=== PATIENT | female | born 1975 | race Caucasian/White ===

== ENCOUNTER 2016-05-11 10:08 | Emergency (ER) | payer OTHER ==
--- NOTE | ~2016-05-11 | ER ---
PATIENT'S NAME: YAZMIN BACON [facility] AGE: 41 Y [address] ROOM: [place] [id number] LOCATION: ED ADMIT DATE: 05/11/2016 ER/Outpatient Report DISCHARGE DATE: 05/11/2016 FAMILY PHYSICIAN: Flaco Talbot MD ATTENDING PHYSICIAN: Lili Velez TIME OF ARRIVAL: 10:08. TIME SEEN: 10:14. IDENTIFICATION: A 41-year-old female. CHIEF COMPLAINT: Wanting pain medications. HISTORY OF PRESENT ILLNESS: The patient is a 41-year-old female, who has chills, body aches, diarrhea, and clammy. She was diagnosed with breast cancer, and is on chronic opiates. She states she has stage IV breast cancer. She has been through chemotherapy, and she is on letrozole. She ran out of her pain prescription early, and cannot refill for two days. She follows up with Dr. Maldonado every six months, and in May is her next appointment. She said, "I just feel horrible." She has backache, "my whole body aches," headache, and generalized weakness. No fever. No hallucinations. No tremors. She has never had seizures or withdrawal symptoms. She has not been around anyone else who is ill. ALLERGIES: PENICILLIN AND SULFA. CURRENT MEDICATIONS: 1. OxyContin CR 60 mg b.i.d. 2. Oxycodone 20 mg four times daily. Both of those are prescribed per Dr. Maldonado, the Pain specialist. Letrozole daily. MEDICAL PROBLEMS: Stage IV breast cancer followed at the [facility] in [place], metastasized to bone. PATIENT'S NAME: YAZMIN BACON [facility] AGE: 41 Y [address] ROOM: [place] [address] LOCATION: [facility] ADMIT DATE: 05/11/2016 ER/Outpatient Report DISCHARGE DATE: 05/11/2016 FAMILY PHYSICIAN: Flaco Talbot MD ATTENDING PHYSICIAN: Lili Velez PRIOR SURGERIES: 1. Port in left chest. 2. Oophorectomy. SOCIAL HISTORY: The patient lives in [place]. She has kids at home with her. Tobacco exposure, none. Alcohol and drugs, denies. The patient was specifically asked about other drug use besides her prescription medications, and she said 'no.' FAMILY HISTORY: No pertinent family history was identified. REVIEW OF SYSTEMS: All systems were reviewed and are negative other than what is noted in the HPI (history of present illness). PHYSICAL EXAMINATION: VITAL SIGNS: Weight is 97 kg. Blood pressure was 162/98, pulse was 80, respirations were 20, temperature was 99.1, and saturations were 98%. GENERAL: A 41-year-old female, in no acute distress. HEENT: Head: Normocephalic and atraumatic. Ears: TMs (tympanic membranes) are translucent both ears. Nose: Mucosa was pink. No lesions. Mouth: No lesions. Pharynx was benign. LUNGS: Clear to auscultation. HEART: Regular rate and rhythm. ABDOMEN: Soft, nondistended, and nontender. SKIN: [place], warm, and dry. No lesions or rashes were noted. The patient has some scabbed lesions on her face. She said those are from picking. NEUROLOGICAL: No focal deficits. LABORATORY DATA: Chemistry Panel: Sodium was 145, potassium was 4.0, chloride was 109, CO2 was 26, BUN was 10, creatinine was 0.8, blood sugar was 147, total protein was 8.5, globulin was 4.5, AST was 69, and ALT was 106. These are elevated from previous values. Alcohol was less than 0.010. Influenza A and B were negative. Urine drug screen was positive for benzodiazepine, opiates, and THC. When the patient was confronted about this, she forgot that her gave her two of PATIENT'S NAME: YAZMIN BACON [facility] AGE: 41 Y [address] ROOM: [place], [place] [address] LOCATION: [facility] ADMIT DATE: 05/11/2016 ER/Outpatient Report DISCHARGE DATE: 05/11/2016 FAMILY PHYSICIAN: Flaco Talbot MD ATTENDING PHYSICIAN: Lili Velez those "gummy things." When asked what those were, she said they were marijuana, and I told her that we specifically asked about drug use, and she says, "I forgot." She also is not on any benzodiazepines, and is positive for benzos. O and P (ova and parasite) screen was negative. Hemoglobin of 13.4, hematocrit of 39.2, platelets of 220, and white count of 6.2 with a normal differential. Urine hCG is negative. UA (urinalysis) is negative. Occult blood is negative. Rare white blood cells. Stool culture is pending. Clostridium difficile was negative. IMPRESSION AND PLAN: Chronic pain, and she has run out of her pain medications early. We did contact Dr. Maldonado's office, who states that the patient just had her medications filled on the . She said she has been out of her medications for two days. She is not due to get them for two more days. She has the script, but it specifically says do not fill until May [address] Maldonado's office has requested that she go and then be re-assessed for her pain. She has refused to do that. I did ask her about that. She said that is because she lives in [place], and she was not out of her pain medicine yet. She has a variety of reasons for not going in there. I suggested that she needs to get back in to Dr. Talbot or Dr. Maldonado. She wanted something for pain here. I gave her Toradol 30 mg IM. She is to follow up with either Dr. Talbot or Dr. Maldonado in one to two days. LILI VELEZ MD CAR/modl /[id number] d: 05/11/167 t: 05/13/16 1703, OUTPATIENT REPORT
[2016-05-11 10:59] LABS: BASOPHIL % 0.3 %; HEMATOCRIT 39.2 % (33.0-46.0); HEMOGLOBIN 13.4 g/dL (11.0-15.0); IMMATURE GRANULOCYTE % 0.3 %; LYMPHOCYTE # 1.4 K/uL (0.8-4.0); LYMPHOCYTE % 23.1 %; MCH 30.2 pg (27.0-34.0); MCHC 34.2 gm/dL (32.0-36.5); MCV 88.3 fl (83.0-98.0); MONOCYTE # 0.2 K/uL (0.0-1.0); MONOCYTE % 3.7 %; MPV 9.7 fl (9.4-12.4); NEUTROPHIL # (ANC) 4.5 K/uL (1.8-7.8); NEUTROPHIL % 72.6 %; NRBC % 0 /100WBC (0-0.00); PLATELET COUNT 220 K/uL (150-450); RDW-CV 12.4 % (11.9-14.6); WBC 6.2 K/uL (4.0-11.0)
[2016-05-11 11:00] LABS: RBC 4.44 M/uL (3.50-5.50)
[2016-05-11 11:12] LABS: BILIRUBIN URINE NEGATIVE (NEGATIVE); BLOOD URINE 10 /UL (NEGATIVE); COLOR URINE YELLOW (YELLOW); GLUCOSE URINE NEGATIVE (NEGATIVE); KETONE URINE NEGATIVE (NEGATIVE); LEUKOCYTES URINE 25 /UL (NEGATIVE); NITRITE URINE NEGATIVE (NEGATIVE); PROTEIN URINE 15 mg/dL (NEGATIVE); SPEC GRAVITY URINE 1.005 (1.003-1.035); TURBIDITY URINE CLEAR (CLEAR); UROBILINOGEN URINE NORMAL (NORMAL)
[2016-05-11 11:14] LABS: ALK PHOS 87 IU/L (33-138); ALT 106 IU/L (12-78); AST 69 IU/L (10-40); BLOOD UREA NITROGEN 10 mg/dL (6-24); CALCIUM 9.7 mg/dL (8.5-10.5); CHLORIDE 109 mMol/L (96-110); CO2 26 mMol/L (22-32); CREATININE 0.8 mg/dL (0.5-1.1); ESTIMATED GFR (MDRD EQUATION) > 60; SODIUM 145 mMol/L (135-145); TOTAL BILIRUBIN 0.4 mg/dL (0.0-1.5); TOTAL PROTEIN 8.5 g/dL (6.0-8.4)
[2016-05-11 11:19] LABS: BACTERIA URINE NEGATIVE (NEGATIVE); EPITHELIAL URINE 0-2 #/HPF (NEGATIVE); RBC URINE 0-2 #/HPF (NEGATIVE)
[2016-05-11 11:29] LABS: BARBITURATE NEGATIVE (NEGATIVE); COCAINE NEGATIVE (NEGATIVE)
[2016-05-11 11:30] LABS: AMPHETAMINE NEGATIVE (NEGATIVE); OPIATES POSITIVE (NEGATIVE)
== END 2016-05-11 11:56 | disposition disaster alternative care site (69) ==
LOC: GMED 10:08
PROVIDERS: Family Medicine
DX: G89.29 Other chronic pain (principal); C50.919 Malignant neoplasm of unspecified site of unspecified female breast; Z88.0 Allergy status to penicillin; Z88.2 Allergy status to sulfonamides; Z79.899 Other long term (current) drug therapy; Z79.891 Long term (current) use of opiate analgesic
CPT/HCPCS: G0480; J1885